=== PATIENT | female | born 1950 | race Caucasian/White ===

== ENCOUNTER → 2017-09-28 | Outpatient (CLI) | payer OTHER ==
[~2017-09-28] MED LIST: BENZ100 PO; Z.0.NO CURRENT MEDS; ZITH250T PO
--- NOTE | 2017-10-02 09:56 | RSPPFT ---
DATE OF PROCEDURE: 09/28/17 COMMENTS: VOLUMES DYNAMIC: FVC and FEV1 normal. STATIC: FRC and RV normal. FLOWS: FEV1% and FEF 25-75 mildly reduced. DIFFUSION: Mildly reduced. FLOW VOLUME LOOP: Terminal airflow obstruction. IMPRESSION: Very mild obstructive ventilatory defect with a mild reduction in diffusion without significant hyperinflation. No improvement post-bronchodilator noterd.
== END ==
LOC: HRSP 09:41
PROVIDERS: ATTEND Internal Medicine
DX: J44.9 Chronic obstructive pulmonary disease, unspecified (principal)
CPT/HCPCS: 94060; 94620; 94726; 94729; 95012